=== PATIENT | male | born 1965 | race Caucasian/White ===

== ENCOUNTER → 2018-12-21 | Day surgery (SDC) | payer MEDICARE, OTHER ==
[2018-12-21] VITALS (9 sets, daily range): BP systolic 118–143; BP diastolic 77–89
[~2018-12-21] VITALS: Ht 180.3 cm; Wt 68.0 kg
[~2018-12-21] MED LIST: Acetylcholine Injection (OR) ONE; BSS 15ml BTL ONE; BSS 500ml btl ONE; Bupivacaine 0.75% 30ml vial INJ ONE; Cyclopentolate 1% Opth Sol 2ml LEFT EYE ONE; Dexamethasone 4mg/ml vial ONE; DiphenhydrAMINE 50mg/ml Inj IVP PRN; EPINEPHrine 1mg/1ml Amp ONE; Goniotaire 2.5% Opth Soln - 15ml ONE; Hydromorphone 0.5mg/0.5ml inj IVP PRN; Kenalog-40 1ml Vial ONE; Lidocaine 2% MPF 5ml Vial INJ ONE; Maxitrol Opth Oint 3.5gm ONE; Midazolam 2mg/2ml Inj ONE; NS Irrig 1000ml ONE; Phenylephrine 2.5% Op 2ml Soln LEFT EYE ONE; Povidone-Iodine 5% opth solution ONE; Proparacaine 0.5% Opth Soln 15ml LEFT EYE ONE; Propofol 200mg/20ml IV ONE; Sodium Hyaluronate 10 mg/ml 0.85ml ONE; Sterile Water Irrig 1000ml IRRIG ONE; Tetracaine 0.5% Opth 4ml Soln ONE; Tropicamide 1% Opth 15ml Soln LEFT EYE ONE; fentaNYL 100 mcg/2 mL IV ONE
--- NOTE | 2018-12-21 11:43 | NUR ---
ED Nurse Note: shop service technician notified of xray order. OR on pt's chart. will follow up to send adm to registration.
--- NOTE | 2018-12-21 11:45 | NUR ---
ED Nurse Note: Patient brought into ED by [facility] for left eye retinal detachment. patient has a surgery scheduled at [address] Hahn today. Patient is a/o x4, presents with bilateral lower extremity weakness, patient has right upper arm single lumen picc, per patient it was placed yesterday at [facility] as patient needs prolonged antibiotic patient reports that retinal detachment happened yesterday all of a sudden.
--- NOTE | 2018-12-21 11:55 | Emergency Room Report ---
History of Present Illness General Chief Complaint: To Be Triaged Source: Patient Present Illness HPI The patient was a [place] with evaluation for infected PICC line. During the time there, he started having acute visual changes of Left eye. Lower visual field was not normal. No trauma. He was found to have retinal detachment and sent here to have an operation. Labs were done. Also EKG. He has a porcine aortic valve. This from [facility]. Taking Xarelto for h/o DVT. He has had fluid around the left lung (states was not felt to be significant). Treated for cancer/leukemia with immunotherapy. Post radical neck dissection. Allergies: Coded Allergies: LORACARBEF (Verified Allergy, Unknown, 12/21/18) LORAZEPAM (Verified Allergy, Unknown, 12/21/18) PROCHLORPERAZINE (Verified Allergy, Unknown, 12/21/18) Patient History Past Medical History: see triage record Past Surgical History: other - AV replacement (porcine) Social History: Denies: smoking, alcohol use Social History Narrative Reviewed Nursing Documentation: PMH: Agreed; PSxH: Agreed Review of Systems All Other Systems: negative except mentioned in HPI Physical Exam Vital Signs Date Time Temp Pulse Resp B/P (MAP) Pulse Ox O2 Delivery O2 Flow Rate FiO2 12/21/18 11:42 98.1 107 12 124/94 98 Room Air Sp02 EP Interpretation: reviewed, normal General Appearance: well appearing, no apparent distress, GCS 15 Head: normocephalic Eyes: left eye other - abnormal visual field - cut lower aspect; bilateral eye normal inspection, bilateral eye PERRL ENT: other - malapati 1 Neck: supple Respiratory: lungs clear, normal breath sounds, other - sternotomy scar Cardiovascular #1: regular rate, rhythm Cardiovascular #2: 2+ radial (R) Gastrointestinal: normal inspection, normal bowel sounds, non tender, no mass, non-distended Musculoskeletal: back normal, gait/station normal, normal range of motion, no calf tenderness, other - PICC L arm Neurologic: alert, oriented x3, grossly normal - with change vision L eye Psychiatric: mood/affect normal Skin: normal inspection, warm/dry Medical Decision Making Diagnostic Impression: Primary Impression: Retinal detachment Qualified Codes: H33.22 - Serous retinal detachment, left eye Additional Impressions: Aortic valve replaced PICC line infection Qualified Codes: T80.219D - Unspecified infection due to central venous catheter, subsequent encounter Taking Xarelto Pleural effusion, left ER Course Patient with retinal detachment for surgery here. See labs below. Some issue are that he is on Xarelto, L effusion. CXR indicated. CXR with large effusion. Labs with platelet estimate low. Pre-op eye drops given. Patient sent to OR. White count 6600, normal indices, platelet count is not recorded platelet estimate is slightly decreased hemoglobin 7.9. Sodium 138 potassium 4.1 chloride 103 bicarbonate 26-year-old 8 creatinine not recorded INR 1.2 with pro time 14.1 EKG Diagnostic Results Rate: normal Rhythm: NSR ST Segments: no acute changes Rhythm Strip Diag. Results EP Interpretation: yes Rhythm: NSR, no PVC's, no ectopy Chest X-Ray Diagnostic Results Chest X-Ray Diagnostic Results : Chest X-Ray Ordered: Yes # of Views/Limited/Complete: 1 View Indication: Other EP Interpretation: Yes Interpretation: no consolidation, no pneumothorax, other - Large left effusion Impression: Other Electronically Signed by: Electronically signed by Rahul Ahuja MD Last Vital Signs Date Time Temp Pulse Resp B/P (MAP) Pulse Ox O2 Delivery O2 Flow Rate FiO2 12/21/18 15:06 97.6 86 17 124/77 100 Room Air 86 Status: unchanged Disposition: PLACE IN OBSERVATION Condition: Serious Rahul Ahuja MD Dec 21, 2018 11:55
--- NOTE | 2018-12-21 12:11 | NUR ---
ED Nurse Note: cyclogyl given. waiting for the pharmay to prepare the rest. called pharmacy spoke with Belen.
--- NOTE | 2018-12-21 12:19 | NUR ---
ED Nurse Note: patient is going down to OR Endorsed to donovan RN that alcaine and neosynephrine still need to be given. consent started, endorsed to Donovan.
--- NOTE | 2018-12-21 12:20 | NUR ---
ED Nurse Note: patient transferred to surgery with tech.
--- NOTE | 2018-12-21 12:33 | Pre-Procedure Note/Attestation ---
Pre-Procedure Note/Attestation Complete Prior to Procedure Planned Procedure: left Procedure Narrative: RRD OS Indications for Procedure Pre-Operative Diagnosis: RRD OS Plan for PPV/EL/Gas OS Attestation I attest that I discussed the nature of the procedure; its benefits; risks and complications; and alternatives (and the risks and benefits of such alternatives ), prior to the procedure, with the patient (or the patient's legal practice representative). I attest that, if there was a reasonable possibility of needing a blood transfusion, the patient (or the patient's legal practice representative) was given the [facility] standardized written summary, pursuant to the [employer] Blood Safety Act ([place] Health and Safety Code # 1645, as amended). I attest that I re-evaluated the patient just prior to the surgery and that there has been no change in the patient's H&P, except as documented below: Gil Palafox M.D., MD Dec 21, 2018 12:33
--- NOTE | 2018-12-21 12:35 | Operative Note - PDOC ---
Operative Note Operative Note Chief Complaint: Vision loss OS Pre-op Diagnosis: RRD OS Plan for PPV/EL/Gas OS Procedure: PPV/EL/SF6 OS Surgeon: Javy Anesthesia: local Specimen: none Complications: none Condition: stable Estimated Blood Loss: minimal Drains: none Implant(s) used?: No Indications for Procedure Indications for the procedure: The patient has vision loss due to retinal detachment and presents today for urgent surgery. After review of the risks, benefits, alternative and signing informed consent into the medical chart. Description of Procedure Procedure performed: The patient was met in the pre-operative area where informed consent was reviewed. The operative eye was verified, marked and dilated. The patient was transferred to the operative suite , where cardiopulmonary monitoring was established and retrobulbar anesthetic was administered without complications. The eye was prepped and draped in sterile ophthalmic fashion. Under microscope visualization the 23 gauge infusion line was placed 4 millimeters inferotemporally. After visualization of the tip in the vitreous cavity, the infusion line was turned on. The superotemporal and superonasal cannulas were placed. Under BIOM visualization, peripheral and core vitrectomy was performed. The vitreous was trimmed from the large tears ST. As the traction was released, the SRF was drained. Posterior drainage retinotomy was created and SRF was drained to flatten the retina. Inspection of the periphery revealed other breaks. Air fluid exchange was performed and the tears and RTO were lasered. SF6 gas was infused and the cannulas were removed. The eye maintained normal intraocular pressure. Subconjunctival vancomycin and dexamethasone were administered. The lid speculum was removed. The eye was cleaned of prep and drape. Atropine drop and Maxitrol ointment was applied. A pressure patch was placed. The patient was turned over to the anesthesia team and transferred in stable condition to the PACU. Gil Palafox M.D., MD Dec 21, 2018 12:35
--- NOTE | 2018-12-21 12:43 | Diagnostic Imaging Report ---
Indication: Dyspnea Comparison: None A single view chest radiograph was obtained. Findings: There is evidence of a left pleural effusion with hazy opacity present. Heart size is normal. There is a line projected over the right axillary vein. Sternotomy noted. Surgical clips in the left side of the neck noted. IMPRESSION: Left pleural effusion
--- NOTE | 2018-12-21 13:19 | Anethesia Preoperative Eval ---
Anesthesia Pre-op PMH/ROS General Date of Evaluation: Dec 21, 2018 Time of Evaluation: 12:25 Anesthesiologist: Danay ASA Score: ASA 3 Mallampati Score Class I : Soft palate, uvula, fauces, pillars visible Class II: Soft palate, uvula, fauces visible Class III: Soft palate, base of uvula visible Class IV: Only hard plate visible Mallampati Classification: Class II Surgeon: Javy Diagnosis: L eye retinal detouchment Surgical Procedure: L eye PPV Anesthesia History: none Family History: no anesthesia problems Allergies: Coded Allergies: LORACARBEF (Verified Allergy, Unknown, 12/21/18) LORAZEPAM (Verified Allergy, Unknown, 12/21/18) PROCHLORPERAZINE (Verified Allergy, Unknown, 12/21/18) Medications: see eMAR Patient NPO?: Yes Past Medical History Cardiovascular: Denies: HTN, CAD, [place], valve dz, arrhythmia, other Pulmonary: Denies: asthma, COPD, CHERIE, other Gastrointestinal/Genitourinary: Reports: GERD; Denies: CRI, ESRD, other Neurologic/Psychiatric: Reports: depression/anxiety, other - Chronic pain; Denies: dementia, CVA, TIA Endocrine: Reports: hypothyroidism HEENT: Denies: cataract (L), cataract (R), glaucoma, [place] (L), [place] (R), other Hematology/Immune: Reports: anemia, bleeding disorder - anticoagulated, other - Leukemia on immunotherapy; Denies: DVT Musculoskeletal/Integumentary: Denies: OA, RA, DJD, DDD, edema, other Other: other - malnourished PMH Narrative: H/o sepsis 2 to PICC line infection, with endocarditis s/p aortic valve replacement PSxH Narrative: Radical neck dissection, aortic valve replacement Anesthesia Pre-op Phys. Exam Physician Exam Last Vital Signs Date Time Temp Pulse Resp B/P (MAP) Pulse Ox O2 Delivery O2 Flow Rate FiO2 12/21/18 12:20 98.1 100 12 143/89 99 Room Air Constitutional: NAD Neurologic: CN 2-12 intact Cardiovascular: RRR, no M/R/G Respiratory: CTA Gastrointestinal: S/NT/ND Airway Exam Mallampati Score: Class II MO: limited Neck: scarred, stiff ROM: limited Teeth: missing Dentures: no upper, no lower Anesthesia Pre-op A/P Labs see chart Studies Pre-op Studies: EKG - SR Risk Assessment & Plan Assessment: ASA 3 Plan: MAC with eye block Status Change Before Surgery: No Pre-Antibiotics Drug: none Ambrocio Jon MD Dec 21, 2018 13:19
--- NOTE | 2018-12-21 13:49 | Immediate Post-Op Evaluation ---
Immediate Post-Op Evalulation Immediate Post-Op Evalulation Procedure: L eye PPV membrane peel laser treatment, fluid to gas exchenge Date of Evaluation: Dec 21, 2018 Time of Evaluation: 13:48 IV Fluids: 300 Blood Products: none Estimated Blood Loss: min Urinary Output: none Blood Pressure Systolic: 128 Blood Pressure Diastolic: 74 Pulse Rate: 82 Respiratory Rate: 20 O2 Sat by Pulse Oximetry: 98 Temperature (Fahrenheit): 97.6 Pain Score (1-10): 1 Nausea: No Vomiting: No Complications none Patient Status: awake, patent, none Hydration Status: adequate Ambrocio Jon MD Dec 21, 2018 13:49
[2018-12-22 07:41] VITALS: BP 124/76
--- NOTE | 2018-12-22 07:41 | 48 Hour Post Anesthesia Eval ---
Post Anesthesia Evaluation Procedure: L eye PPV membrane peel laser treatment, fluid to gas exchenge Date of Evaluation: Dec 21, 2018 Time of Evaluation: 15:10 Blood Pressure Systolic: 124 0: 76 Pulse Rate: 74 Respiratory Rate: 20 Temperature (Fahrenheit): 97.5 O2 Sat by Pulse Oximetry: 98 Airway: patent Nausea: No Vomiting: No Pain Intensity: 2 Hydration Status: adequate Cardiopulmonary Status: stable Mental Status/LOC: patient returned to baseline Follow-up Care/Observations: n/a Post-Anesthesia Complications: none Follow-up care needed: ready to discharge Ambrocio Jon MD Dec 22, 2018 07:41
--- NOTE | 2018-12-25 13:02 | Cardiology Report ---
APPROVED REPORT EKG Measurement Heart [id number] Normal sinus rhythm Normal ECG
== END | disposition home or self-care (01) ==
LOC: EMR 11:58 → EDBEDREQ 12:08 → SUR 12:13
DX: H33.22 Serous retinal detachment, left eye (principal); T80.219D Unspecified infection due to central venous catheter, subsequent encounter; Z79.01 Long term (current) use of anticoagulants; J90 Pleural effusion, not elsewhere classified; Z95.2 Presence of prosthetic heart valve; Z86.718 Personal history of other venous thrombosis and embolism; Z88.8 Allergy status to other drugs, medicaments and biological substances; Z85.6 Personal history of leukemia; K21.9 Gastro-esophageal reflux disease without esophagitis; F41.9 Anxiety disorder, unspecified; F32.9 Major depressive disorder, single episode, unspecified
CPT/HCPCS: 67040; 71045; 93005; 99284; J0171; J1100; J2250; J2704; J3010; J3301; J3370; J3490; 94003; 94150